=== PATIENT | female | born 1955 | race Caucasian/White ===

== ENCOUNTER 2017-03-28 18:44 | Observation (INO) | payer MEDICARE ==
[2017-03-28] MEDS ORDERED: LEVOFLOXACIN 500 MG IVPB ONE (19:51)
[2017-03-28] MEDS ORDERED: Ondansetron INJ* 2 MG/ML VIAL IV ONE (19:51)
[2017-03-28] MEDS ORDERED: Morphine INJ* 4 MG/ML 1 ML CARPUJECT IV ONE (19:51)
[2017-03-28] MEDS ORDERED: IVPREMIX IVPB ONE (19:51)
[2017-03-28] MEDS ORDERED: NS 0.9% 1000 ML* 1,000 ML IV ONE (19:51)
[2017-03-28] MEDS ORDERED: metroNIDAZOLE IV 500 MG/100ML* 500 MG/100 ML BAG IVPB ONE (19:54)
[2017-03-28 20:08] LABS: ABS Basophils 0.4 10^3/ul (0-0.2); ABS Eosinophils 0.1 10^3/ul (0-0.6); ABS Lymphocytes 77.3 10^3/ul (1.0-4.8); ABS Monocytes 1.5 10^3/ul (0-0.8); ABS Neutrophils 10.3 10^3/ul (1.5-7.7); ABS Nucleated RBC 0.61 10^3/ul; Eosinophil % 0.1 % (0-6); Hematocrit 43 % (35-47); Hemoglobin 13.9 g/dl (12.0-16.0); Lymphocyte % 86.4 % (25-47); Mean Corpuscular HGB Conc 32 g/dl (31-36); Mean Corpuscular Hemoglobin 32 pg (27-31); Mean Corpuscular Volume 98 fL (80-97); Mean Platelet Volume 9 um3 (7.4-10.4); Nucleated Red Blood Cells % 0.7; Platelet Count 176 10^3/ul (150-450); Red Blood Count 4.35 10^6/ul (4.0-5.4); Red Cell Distribution Width 14 % (10.5-15); White Blood Count 89.5 10^3/ul (3.5-10.8)
[2017-03-28 20:19] LABS: EGFR Non-African American 63.4 (>60)
[2017-03-28] MEDS ORDERED: Iohexol 300* (CONTRAST) 10 ML SDV IV ONE (20:30)
[2017-03-28] MEDS ORDERED: Levofloxacin 500 MG IVPREMIX(* 500 MG/100 ML BAG IVPB ONE (20:41)
[2017-03-28 20:53] LABS: INR 0.97 (0.77-1.02)
[2017-03-28 21:48] LABS: Urine Appearance Clear; Urine Blood Negative (Negative); Urine Color Yellow; Urine Ketones Negative (Negative); Urine Protein Negative (Negative); Urine Specific Gravity 1.012 (1.010-1.030); Urine Urobilinogen Negative (Negative)
--- NOTE | 2017-03-28 22:27 | RAD ---
INDICATION: Abdominal pain. COMPARISON: There are no prior studies available for comparison. TECHNIQUE: A CT scan of the abdomen and pelvis was performed with intravenous and oral contrast following intravenous injection of 113 ml of Omnipaque 300 nonionic contrast. Contiguous axial sections were obtained from the lung bases through the symphysis pubis. Images were reconstructed in the coronal and sagittal planes. FINDINGS: There is mild dependent bilateral lower lobe subsegmental atelectasis. No pleural effusion is present. The liver is normal in size and decreased in attenuation consistent with fatty filtration. No significant focal hepatic abnormality is seen. No calcified gallstones are noted. The spleen is upper limits of normal in size. The pancreas appears to be within normal limits. The kidneys and adrenal glands are normal in size. No hydronephrosis is seen. No significant focal renal abnormality is seen. The aorta is normal in caliber and demonstrates homogeneous contrast opacification. No significant enlarged retroperitoneal lymph nodes are seen. The stomach, small and large bowel appear nondistended. The patient is status post appendectomy by history. There is thickening of the wall of the descending and sigmoid colon which is most prominent in the sigmoid colon. There is mild interstitial stranding adjacent to the sigmoid colon. These findings are most consistent with colitis. There a transition point in the mid transverse colon likely representing the beginning of the area involved with inflammation. The patient is status post hysterectomy. There is a small amount of free intraperitoneal fluid present dependently within the pelvis. No free intraperitoneal air is seen. There is soft tissue swelling present in the subcutaneous tissues in the anterior abdominal wall. No significant focal osseous abnormality is seen. IMPRESSION: 1. FINDINGS MOST CONSISTENT WITH COLITIS INVOLVING THE DESCENDING AND SIGMOID COLON. 2. HEPATIC STEATOSIS. 3. STATUS POST HYSTERECTOMY AND APPENDECTOMY BY HISTORY.
[2017-03-28] MEDS ORDERED: Ondansetron INJ* 2 MG/ML VIAL IV PRN (23:07)
[2017-03-28] MEDS ORDERED: Acetaminophen TAB* 325 MG PO PRN (23:07)
--- NOTE | 2017-03-28 23:16 | ED ---
Cyrus Reagan Tecjoon, scriblinda for Peña Lugo MD on 03/28/17 at 2017 . Abdominal Pain/Female - HPI Summary HPI Summary: This patient is a 61 year old female presenting to [facility] accompanied by with a chief complaint of severe abdominal pain followed by rectal bleeding since 0300 last night. Patient states that sx are intermittent and there is a sharp shooting pain across abdomen, then blood comes. Pt describes blood as slimy. The pain is rated 6/10 in severity and radiates to lower back. Symptoms aggravated by palpation. Symptoms alleviated by nothing. Patient additionally reports chills, bad diarrhea. Patient denies fever - History of Current Complaint Chief Complaint: EDAbdPain Stated Complaint: PAIN IN ABD & BACK,GI PROBS Time Seen by Provider: 03/28/17 19:36 Hx Obtained From: Patient Onset/Duration: Lasting Days - 2, Still Present Timing: Intermittent Episode Lasting Severity Currently: Moderate Pain Intensity: 6 Pain Scale Used: 0-10 Numeric Location: Diffuse Radiates: Yes Radiates to: Back - lower Character: Sharp, Other: - shooting Aggravating Factor(s): Other: - palpation Alleviating Factor(s): Nothing Associated Signs and Symptoms: Positive: Negative - fever, Other: - chills, bad diarrhea, anal bleeding Allergies/Adverse Reactions: Allergies Allergy/AdvReac Type Severity Reaction Status Date / Time No Known Allergies Allergy Verified 03/08/16 14:22 PMH/Surg Hx/FS Hx/Imm Hx Previously Healthy: No Endocrine/Hematology History: Reports: Other Endocrine/Hematological Disorders - lymphocytic leukemia Denies: Hx Diabetes Cardiovascular History: Denies: Hx Hypertension, Hx Pacemaker/ICD, Other Cardiovascular Problems/ Disorders Respiratory History: Denies: Hx Asthma History: Denies: Hx Dialysis, Hx Renal Disease Musculoskeletal History: Denies: Hx Rheumatoid Arthritis, Hx Osteoporosis Sensory History: Denies: Hx Contacts or Glasses, Hx Hearing Aid Opthamlomology History: Denies: Hx Contacts or Glasses Neurological History: Reports: Other Neuro Impairments/Disorders - PT HAS MULTIPLE SCLEROSIS Psychiatric History: Reports: Hx Depression - ON MEDS Denies: Hx Panic Disorder - Cancer History Cancer Type, Location and Year: LEUKEMIA Hx Chemotherapy: No Hx Radiation Therapy: No Hx Palliative Cancer Treatment: No - Surgical History Surgery Procedure, Year, and Place: HYSTERECTOMY 1982, APPENDIX 1982, LASIX 2004 ;. EYELID -( NO METAL- FAT REMOVED) 01/2015; Hx Anesthesia Reactions: No Infectious Disease History: No Infectious Disease History: Denies: Traveled Outside the [place] in Last 30 Days - Family History Known Family History: Positive: Hypertension, Other - colon cancer - Social History Lives: With Family Alcohol Use: Occasionally Alcohol Amount: 1 Q 2 WEEKS Hx Substance Use: No Substance Use Type: Reports: None Hx Tobacco Use: No Smoking Status (MU): Never Smoked Tobacco Have You Smoked in the Last Year: No Review of Systems Positive: Chills. Negative: Fever Positive: Abdominal Pain, Diarrhea, Other - anal bleeding Positive: Other - back pain All Other Systems Reviewed And Are Negative: Yes Physical Exam - Summary Physical Exam Summary: VITAL SIGNS: Reviewed. GENERAL: Patient is a well-developed and nourished female who is lying comfortable in the stretcher. Patient is not in any acute respiratory distress. HEAD AND FACE: No signs of trauma. No ecchymosis, hematomas or skull depressions. No sinus tenderness. EYES: PERRLA, EOMI x 2, No injected conjunctiva, no nystagmus. EARS: Hearing grossly intact. Ear canals and tympanic membranes are within normal limits. MOUTH: Oropharynx within normal limits. NECK: Supple, trachea is midline, no adenopathy, no JVD, no carotid bruit, no c- spine tenderness, neck with full ROM. CHEST: Symmetric, no tenderness at palpation LUNGS: Clear to auscultation bilaterally. No wheezing or crackles. CVS: Regular rate and rhythm, S1 and S2 present, no murmurs or gallops appreciated. ABDOMEN: Diffuse tenderness over left abdomen. Bowel sounds are normal. RECTAL: Empty rectal. No masses. Tinge of blood on examining finger. EXTREMITIES: FROM in all major joints, no edema, no cyanosis or clubbing. NEURO: Alert and oriented x 3. No acute neurological deficits. Speech is normal and follows commands. SKIN: Dry and warm Triage Information Reviewed: Yes Vital Signs On Initial Exam: Initial Vitals Temp Pulse Resp BP Pulse Ox 99.1 F 111 20 148/98 94 03/28/17 18:48 03/28/17 18:48 03/28/17 18:48 03/28/17 18:48 03/28/17 18:48 Vital Signs Reviewed: Yes Diagnostics - Vital Signs Vital Signs Temp Pulse Resp BP Pulse Ox 03/28/17 18:48 99.1 F 111 20 148/98 94 - Laboratory Lab Results: Lab Results 03/28/17 03/28/17 03/28/17 Range/Units 19:52 19:52 19:52 WBC 89.5 H (3.5-10.8) 10^3/ul RBC 4.35 (4.0-5.4) 10^6/ul Hgb 13.9 (12.0-16.0) g/dl Hct 43 (35-47) % MCV 98 H (80-97) fL MCH 32 H (27-31) pg MCHC 32 (31-36) g/dl RDW 14 (10.5-15) % Plt Count 176 (150-450) 10^3/ul MPV 9 (7.4-10.4) um3 Neut % (Auto) 11.5 L (38-83) % Lymph % (Auto) 86.4 H (25-47) % [place] % (Auto) 1.6 (1-9) % Eos % (Auto) 0.1 (0-6) % Baso % (Auto) 0.4 (0-2) % Absolute Neuts (auto) 10.3 H (1.5-7.7) 10^3/ul Absolute Lymphs (auto) 77.3 H (1.0-4.8) 10^3/ul Absolute Monos (auto) 1.5 H (0-0.8) 10^3/ul Absolute Eos (auto) 0.1 (0-0.6) 10^3/ul Absolute Basos (auto) 0.4 H (0-0.2) 10^3/ul Absolute Nucleated RBC 0.61 10^3/ul Nucleated RBC % 0.7 Hem Pathologist Commnt Pending INR (Anticoag Therapy) 0.97 (0.77-1.02) APTT 28.9 (26.0-36.3) seconds Sodium 138 (133-145) mmol/L Potassium 4.8 (3.5-5.0) mmol/L Chloride 102 (101-111) mmol/L Carbon Dioxide 29 (22-32) mmol/L Anion Gap 7 (2-11) mmol/L BUN 13 (6-24) mg/dL Creatinine 0.90 (0.51-0.95) mg/dL Est GFR ( Amer) 81.6 (>60) Est GFR (Non-Af Amer) 63.4 (>60) BUN/Creatinine Ratio 14.4 (8-20) Glucose 109 H (70-100) mg/dL Lactic Acid (0.5-2.0) mmol/L Calcium 9.3 (8.6-10.3) mg/dL Magnesium 2.0 (1.9-2.7) mg/dL Total Bilirubin 1.00 (0.2-1.0) mg/dL AST 25 (13-39) U/L ALT 33 (7-52) U/L Alkaline Phosphatase 86 (34-104) U/L C-Reactive Protein 9.23 H (< 5.00) mg/L Total Protein 6.6 (6.4-8.9) g/dL Albumin 4.5 (3.2-5.2) g/dL Globulin 2.1 (2-4) g/dL Albumin/Globulin Ratio 2.1 (1-3) Amylase 45 (29-103) U/L Lipase 13 (11.0-82.0) U/L Urine Color Urine Appearance Urine pH (5-9) Ur Specific [place] (1.010-1.030) Urine Protein (Negative) Urine Ketones (Negative) Urine Blood (Negative) Urine Nitrate (Negative) Urine Bilirubin (Negative) Urine Urobilinogen (Negative) Ur Leukocyte Esterase (Negative) Urine Glucose (Negative) 03/28/17 03/28/17 Range/Units 19:52 21:33 WBC (3.5-10.8) 10^3/ul RBC (4.0-5.4) 10^6/ul Hgb (12.0-16.0) g/dl Hct (35-47) % MCV (80-97) fL MCH (27-31) pg MCHC (31-36) g/dl RDW (10.5-15) % Plt Count (150-450) 10^3/ul MPV (7.4-10.4) um3 Neut % (Auto) (38-83) % Lymph % (Auto) (25-47) % [place] % (Auto) (1-9) % Eos % (Auto) (0-6) % Baso % (Auto) (0-2) % Absolute Neuts (auto) (1.5-7.7) 10^3/ul Absolute Lymphs (auto) (1.0-4.8) 10^3/ul Absolute Monos (auto) (0-0.8) 10^3/ul Absolute Eos (auto) (0-0.6) 10^3/ul Absolute Basos (auto) (0-0.2) 10^3/ul Absolute Nucleated RBC 10^3/ul Nucleated RBC % Hem Pathologist Commnt INR (Anticoag Therapy) (0.77-1.02) APTT (26.0-36.3) seconds Sodium (133-145) mmol/L Potassium (3.5-5.0) mmol/L Chloride (101-111) mmol/L Carbon Dioxide (22-32) mmol/L Anion Gap (2-11) mmol/L BUN (6-24) mg/dL Creatinine (0.51-0.95) mg/dL Est GFR ( Amer) (>60) Est GFR (Non-Af Amer) (>60) BUN/Creatinine Ratio (8-20) Glucose (70-100) mg/dL Lactic Acid 2.0 (0.5-2.0) mmol/L Calcium (8.6-10.3) mg/dL Magnesium (1.9-2.7) mg/dL Total Bilirubin (0.2-1.0) mg/dL AST (13-39) U/L ALT (7-52) U/L Alkaline Phosphatase (34-104) U/L C-Reactive Protein (< 5.00) mg/L Total Protein (6.4-8.9) g/dL Albumin (3.2-5.2) g/dL Globulin (2-4) g/dL Albumin/Globulin Ratio (1-3) Amylase (29-103) U/L Lipase (11.0-82.0) U/L Urine Color Yellow Urine Appearance Clear Urine pH 6.0 (5-9) Ur Specific [place] 1.012 (1.010-1.030) Urine Protein Negative (Negative) Urine Ketones Negative (Negative) Urine Blood Negative (Negative) Urine Nitrate Negative (Negative) Urine Bilirubin Negative (Negative) Urine Urobilinogen Negative (Negative) Ur Leukocyte Esterase Negative (Negative) Urine Glucose Negative (Negative) Result Diagrams: 03/28/17 19:52 03/28/17 19:52 Lab Statement: Any lab studies that have been ordered have been reviewed, and results considered in the medical decision making process. - CT CT ABD/PEL CT Interpretation: Positive (See Comments) - IMPRESSION: 1. FINDINGS MOST CONSISTENT WITH COLITIS INVOLVING THE DESCENDING AND SIGMOID COLON. 2. HEPATIC STEATOSIS. 3. STATUS POST HYSTERECTOMY AND APPENDECTOMY BY HISTORY. ED physician has reviewed this radiology report. CT Interpretation Completed By: Radiologist - EKG 2024 Cardiac Rate: NL EKG Rhythm: Sinus Rhythm - 79 BPM EKG Interpretation: NSR (79 BPM), Normal axis. Normal interval. No ischemic changes Abdominal Pain Fem Course/Dx - Course Course Of Treatment: This patient is a 61 year old female presenting to [facility] accompanied by with a chief complaint of severe abdominal pain followed by rectal bleeding since 0300 last night. Patient states that sx are intermittent and there is a sharp shooting pain across abdomen, then blood comes. An EKG, taken 2024, reveals NSR (79 BPM), Normal axis. Normal interval. No ischemic changes. CT ABD/PEL reveals, per radiologist, IMPRESSION: 1. FINDINGS MOST CONSISTENT WITH COLITIS INVOLVING THE DESCENDING AND SIGMOID COLON. 2. HEPATIC STEATOSIS. 3. STATUS POST HYSTERECTOMY AND APPENDECTOMY BY HISTORY. ED physician has reviewed this radiology report. Bloodwork Obtained. Urinalysis Obtained. In the ED course the patient was given Zofran, Morphine, Levaquin, Flagyl, Iohexol, Tylenol. The patient is diagnosed with colitis. Patient also has leukocytosis, which is secondary to lymphomatic leukemia, which is chronic. - Diagnoses Provider Diagnoses: Colitis, Leukocytosis, CLL (chronic lymphocytic leukemia) - Provider Notifications Discussed Care Of Patient With: Rizwan Bartlett - Hospitalist Time Discussed With Above Provider: 23:00 Instructed by Provider To: Admit As Inpatient Discharge - Discharge Plan Condition: Stable Disposition: ADMITTED TO [facility] Referrals: Lorie Street MD [Primary Care Provider] - Additional Instructions: The patient is diagnosed with colitis. Patient also has leukocytosis, which is secondary to lymphomatic leukemia, which is chronic. We discussed patient care with Dr. Bartlett (Hospitalist) and they agreed to admit the patient. The patient is agreeable with this plan. The documentation as recorded by the Cyrus myers Tecjoon accurately reflects the service I personally performed and the decisions made by me, Peña Lugo MD.
[2017-03-29] MEDS: NS 0.9% 1000 ML* 1,000 ML IV SCH ×2 (01:31→09:47)
--- NOTE | 2017-03-29 02:03 | HP ---
CC: Dr. Street; Dr. Adames; Dr. Andrade.* ADMISSION HISTORY AND PHYSICAL: DATE OF ADMISSION: PRIMARY CARE PROVIDER: Dr. Street. ONCOLOGIST: Dr. Adames. NEUROLOGIST: Dr. Andrade. HEALTHCARE PROXY: Her . CODE STATUS: Full. SOURCE OF INFORMATION: History obtained from interview with the patient and review of past medical records. RELIABILITY: Good. CHIEF COMPLAINT: Abdominal pain. HISTORY OF PRESENT ILLNESS: This is a 61-year-old female with past medical history of CLL, multiple sclerosis who has been in his usual state of health until approximately 6 a.m. in the morning of admission, woke up with abdominal pain across her lower abdomen, described as sharp and shooting that was waxing and waning, associated with diarrhea. She notes the sequence of events that she would have an episode of diarrhea followed by sharp, shooting abdominal pain radiating across her lower abdomen, after which she would have passed a small amount of blood per her rectum occurring approximately every 45 minutes. She thinks it is approximately a tablespoon or less of blood each time, not associated with stool. There was mucus associated with the blood and this was occurring every hour since 6 a.m. until presentation in the emergency room. Her last bowel movement was in the emergency room, associated with blood although she cannot give me an accurate time. She thinks the frequency has decreased since presenting to the emergency room. Abdominal pain is currently controlled. Last administration of morphine was at 8:30 p.m. approximately 3 hours prior to evaluation by this author. She has had no nausea or vomiting. No NSAID use or blood thinner use. She always feels lightheaded without change. She has had no chest pain or shortness of breath. She has had sick contacts with people that may have had the flu, but no GI symptoms and she has not eaten anything different or uncooked over the last week. REVIEW OF SYSTEMS: As per HPI including shooting abdominal pain, diarrhea, and bright red blood per rectum associated with mucus. Otherwise, all other systems negative. PAST SURGICAL HISTORY: Multiple sclerosis, optic neuritis, left eye blindness, CLL, hyperlipidemia, history of hysterectomy, and blepharoplasty. SOCIAL HISTORY: Nonsmoker. Drinks approximately 2 glasses of wine per week. 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 FAMILY HISTORY: Significant for a brother with colon cancer. Mother with brain cancer and hypertension. ALLERGIES: No known drug allergies. MEDICATIONS: Reviewed from [facility] include, 1. Duloxetine [address] daily. 2. Zofran ODT every 8 hours as needed. 3. Hydroxyzine 25 mg 1 to 2 tabs every 6 to 8 hours as needed for pruritus. 4. Tizanidine 2 mg daily at bedtime. 5. Copaxone 40 mg per mL 3 times a week, next due tomorrow. 6. Crestor 10 mg daily. 7. Vitamin D, unknown dose, 2 tabs daily. 8. Cortizone-10 1% ointment. PHYSICAL EXAMINATION GENERAL: Sitting up in bed, interactive, pleasant, in no apparent distress. VITAL SIGNS: In the emergency room, 121/76, heart rate 88 to 111, respiratory rate is 16, 97% on room air, T-max is 99.1 degrees Fahrenheit. HEENT: Oropharynx is clear. She has dry mucous membranes. Her sclerae are anicteric. LUNGS: Her lungs are clear to auscultation. She has positive bowel sounds, nondistended, tender to palpation of left lower quadrant. No rebound or guarding. HEART: She has a regular rate and rhythm. No murmurs, rubs or gallops. EXTREMITIES: Extremities are warm, well perfused without clubbing, cyanosis or edema, less than 2 second cap refill. Good peripheral pulses. NEUROLOGIC: She is alert and oriented x3. Cranial nerves are intact except for blindness. Left eye not tested. She has no apparent anxiety, agitation or depression. LABORATORY DATA/ IMAGING STUDIES: Labs were reviewed. White blood cell count is 89,500, 11% neutrophils, 86% lymphocytes, increased from last check which was 65,000 in February 21. INR is 0.9. Chemistry; sodium 137, potassium 4.8 , chloride 102, bicarb 29, BUN 13, creatinine 0.9, glucose 109, lactic acid 2, CRP is 9.2. Urine is benign. EKG, normal sinus rhythm, normal limited axis, good R-wave progression. No ST or T- wave changes. CT abdomen and pelvis, status post appendectomy, thickening of the wall of descending and sigmoid colon, which is most prominent is sigmoid colon. There is mild interstitial stranding adjacent to the sigmoid colon. These findings are most consistent with colitis. There is a transition point in the mid transverse colon likely representing the beginning of the area involved with inflammation. The patient is status post hysterectomy. No free intraperitoneal air is identified. Hepatic steatosis was noted . ASSESSMENT AND PLAN: A 61-year-old female with past medical history of chronic lymphocytic leukemia and multiple sclerosis presenting with abdominal pain associated with bright red blood per rectum, found with descending and sigmoid colitis. 1. Colitis. Lower suspicion for ischemic without risk factors, however, certainly a possibility. With frequent diarrhea occurring every hour, I will check for C. diff colitis, although I might expect colitis to be more diffuse and evidenced on CAT scan. Check stool for cultures. She received metronidazole and Levaquin in the emergency room. We will hold on additional antibiotics at this time. She is dry on exam, give 2 additional liters at 125 mL per hour of normal saline. 2. Rectal bleeding in the setting of colitis. Frequency of bowel movement associated with small amount of bright red blood has decreased. We will keep in hospital observation to monitor for improvement. Repeat blood in the morning or sooner if have additional bleeding. If continues to have bleeding, consider GI consultation for colonoscopy. 3. Chronic lymphocytic leukemia. White blood cell count is 89,000, higher than baseline, currently on no therapy. This may represent the acute inflammation. For this reason, checking a Clostridium difficile as above. Otherwise, no current management. No evidence of bulky lymphadenopathy contributing to disease. 4. Multiple sclerosis. Continue Copaxone, non-formulary, to bring in tomorrow if she stays long enough to receive it. 5. DVT prophylaxis. Pharmacological prophylaxis contraindicated in the setting of lower GI bleed. SCDs. 6. Full code status. [id number]/[facility] #: [id number] MTDD
[2017-03-29 06:25] LABS: ABS Basophils 0.2 10^3/ul (0-0.2); ABS Eosinophils 0.1 10^3/ul (0-0.6); Eosinophil % 0.2 % (0-6); Mean Corpuscular Hemoglobin 32 pg (27-31); Mean Platelet Volume 8 um3 (7.4-10.4)
[2017-03-29 06:27] LABS: ABS Neutrophils 6.9 10^3/ul (1.5-7.7); ABS Nucleated RBC 0.15 10^3/ul; Hematocrit 36 % (35-47); Hemoglobin 11.8 g/dl (12.0-16.0); Lymphocyte % 86.1 % (25-47); Mean Corpuscular HGB Conc 33 g/dl (31-36); Mean Corpuscular Volume 98 fL (80-97); Nucleated Red Blood Cells % 0.2; Platelet Count 135 10^3/ul (150-450); Red Blood Count 3.66 10^6/ul (4.0-5.4); Red Cell Distribution Width 14 % (10.5-15)
[2017-03-29 06:38] LABS: White Blood Count 59.2 10^3/ul (3.5-10.8)
[2017-03-29 06:40] LABS: EGFR Non-African American 74.8 (>60)
[2017-03-29 06:59] LABS: Monocytes % 2 % (0-13)
[2017-03-29] MEDS ORDERED: DULoxetine DR CAP* 60 MG CAP.DR PO SCH (09:00)
[2017-03-29] MEDS ORDERED: Glatiramer(NF) 20 MG/ML 1 ML SYRINGE SUBCUT SCH (09:00)
--- NOTE | 2017-03-29 13:18 | PN ---
Subjective Date of Service: 03/29/17 Interval History: Patient seen and examined at bedside. Patient states diarrhea resolved. She states she has small amounts of bright red blood associated with cramping every hour overnight until early this morning. Now she states cramping as resolved. Reports mild abdominal discomfort. Tolerated full liquid diet. Family History: Unchanged from Admission Social History: Unchanged from Admission Past Medical History: Unchanged from Admission Objective Active Medications: Acetaminophen (Tylenol Tab*) 650 mg PO Q4H PRN Atorvastatin Calcium (Lipitor*) 40 mg PO 2100 MAR Duloxetine HCl (Cymbalta Cap*) 60 mg PO DAILY MAR Glatiramer Acetate (Copaxone(Nf)) 40 mg SUBCUT MoWeFr MAR Sodium Chloride (Ns 0.9% 1000 Ml*) 1,000 mls @ 125 mls/hr IV PER RATE MAR Ondansetron HCl (Zofran Inj*) 4 mg IV Q4H PRN Tizanidine HCl (Zanaflex Tab*) 2 mg PO BEDTIME MAR Vital Signs Temp Pulse Resp BP Pulse Ox 98.1 F 77 18 119/72 100 03/29/17 07:47 03/29/17 07:47 03/29/17 07:47 03/29/17 07:47 03/29/17 07:47 Oxygen Devices in Use Now: None Appearance: sitting up in bed, NAD Eyes: No Scleral Icterus, PERRLA Ears/Nose/Mouth/Throat: NL Teeth, Lips, Gums Neck: NL Appearance and Movements; NL JVP Respiratory: Symmetrical Chest Expansion and Respiratory Effort, Clear to Auscultation Cardiovascular: NL Sounds; No Murmurs; No JVD, RRR Abdominal: - - slight Extremities: No Edema Skin: No Rash or Ulcers Neurological: Alert and Oriented x 3, NL Muscle Strength and Tone Lines/Tubes/Other Access: Clean, Dry and Intact Peripheral IV Nutrition: Taking PO's Result Diagrams: 03/29/17 06:09 03/29/17 06:09 Additional Lab and Data: . Assess/Plan/Problems-Billing Patient is a 61 y/o F w/ hx of CLL, MS who presented 03/28 w/ the c/o of abdominal cramping and BRBPR found to have colitis on CT scan. - Patient Problems (1) Colitis Comment: Viral gaastroenteritis vs ischemic yet she has no risks factors for ischemic. Appreciate GI input. Plan for sigmoidoscopy this afternoon. No antibiotics at this time. (2) BRBPR (bright red blood per rectum) Comment: Resolved; Hb drop secondary to hemodilution. Sigmoidoscopy this afternoon. (3) CLL (chronic lymphocytic leukemia) Comment: WBC slightly up from baseline. Patient is not currently receiving treatment. (4) Multiple sclerosis Comment: Continue Copaxone (5) DVT prophylaxis Comment: SCDs only. (6) Full code status Status and Disposition: OBV. Sigmoidoscopy this afternoon. Possible discharge later this evening.
[2017-03-29] MEDS ORDERED: Midazolam* 1 MG/ML 10 ML VIAL (10 MG) ONE (15:12)
[2017-03-29] MEDS ORDERED: Meperidine SYRINGE* 50 MG/ML ONE (15:12)
[2017-03-29 16:40] VITALS: BP 126/75
--- NOTE | 2017-03-29 20:40 | CONS ---
GASTROENTEROLOGY CONSULT: DATE: 03/29/17 CONSULTING PHYSICIAN: Rizwan Mcnamara. REASON FOR CONSULTATION: Abrupt onset crampy diarrhea with blood. HISTORY: This 61-year-old woman disabled from multiple sclerosis and being followed conservatively for chronic lymphocytic leukemia, had eaten her Boy dinner around 1 p.m. There were 12 others with her. Everyone has else has been fine. She was asleep when she awakened at 4 a.m. with painful cramps and diarrhea. After about an hour, she could discern blood in the diarrhea. It seemed to slow down, but about every hour she was affected by a stabbing pain and more diarrhea. At around 6 p.m., her brought her to the emergency room. In the ER, she was minimally febrile at 99.1 and her white count 89.5, which is slightly higher than her general baseline which runs from 54 to 72. Her LFTs were normal. CRP was 9.23. CT scan showed a thickened descending and sigmoid colon. Overnight, she has had a few more loose stools, but has been feeling better. None of the others at the dinner have been ill. Her bowel pattern is typically once or twice a day without any trouble. She had a colonoscopy in 2005, but nothing seen. Her brother of colon cancer at age 59 and a note from our office this spring says that she is electing not to have any further colonoscopies. PAST MEDICAL HISTORY: 1. CLL - white count up at 40,[address] Ruelas's 2005 note. She has not had any chemo as Dr. Adames is observing things. 2. Multiple sclerosis - on Copaxone injection three times a week per Dr. Andrade. She is blind in her left eye. 3. Status post complete hysterectomy in 1979. 4. Incidental appendectomy in 1979. 5. Swallowing issues - swallowing function study in July 2016 was unremarkable without any aspiration. MEDICATIONS: At home: 1. Copaxone 20 mg t.i.w. 2. Zoloft 150. 3. Trazodone h.s. p.r.n. In the hospital, atorvastatin was started. 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 REVIEW OF SYSTEMS: No history of CVA, TIA, seizures, SC, palpitations, arrhythmias, cardiac valvular disease, hepatitis, jaundice, rectal bleeding, psoriasis, other skin problems. PHYSICAL EXAMINATION: She is a moderately overweight middle-aged woman in no overt distress. Skin is unremarkable. She has a well-healed hysterectomy scar. HEENT exam is unremarkable. There is no icterus. Mucous membranes are normal. Her lungs are clear. Heart sounds are regular. The abdomen is symmetric with bowel sounds present though somewhat diminished. Rectal shows bloody secretions. She is tender to deep palpation below the umbilicus. There is no edema. Neurologic showed no obvious cranial nerve deficit, but she moves all 4 extremities equally in bed. The gait was not tested. IMPRESSION: Probable ischemic colitis with the abrupt thunderclap middle of the night onset of symptoms and a reliable history that 12 others eating the same food have not had a similar illness essesntially making the diagnosis. The CT scan corroborates it. Flexible sigmoidoscopy with biopsy will be useful in future planning. She has no history of a hypercoagulable state or risk factors for vascular disease per se. . [id number]/[facility] #: [id number] MILADYS
[2017-03-29] MEDS ORDERED: Atorvastatin* 40 MG TAB PO SCH (21:00)
[2017-03-29] MEDS ORDERED: tiZANidine TAB* 2 MG PO SCH (21:00)
--- NOTE | 2017-03-30 00:50 | PRO ---
DATE: 03/29/17 - ROOM #[id number] REFERRING PHYSICIAN: Lorie Street MD * PROCEDURE: Flexible sigmoidoscopy and biopsy of distal sigmoid colon at 20 to 22 cm. INDICATION: This 61-year-old woman with a background of chronic lymphocytic leukemia (diagnosed in 1999) and multiple sclerosis (diagnosed in 2010) developed classic 4 a.m. diarrhea that turned bloody. She has now settled down. Her white count is unanalyzable given it's persistent elevation over 30, 000. She is feeling better and her loose stools have diminished. Informed consent was obtained with an opportunity for questions and special concerns. ENDOSCOPIST: Geoff Cunningham MD MEDICATIONS: 6 midazolam with good comfort. FINDINGS: She is a substantially overnight woman, in no overt distress at this time. Her abdomen is symmetric, firm with deep tenderness in the lower half, right equaling left. Bowel sounds are diminished, but present. Rectal shows bloody mucus. Initial views show bloody mucus and normal rectal mucosa. Abruptly at about 20 to 22 cm, there is a transition to a granular goodwin appearance typical of ischemia. Within a couple of centimeters, there is an abrupt angulation and attempts to pass this caused distress and are not necessary to establish the diagnosis. Three biopsies are taken at about 21 to 22 cm from typical granular goodwin edematous mucosa. IMPRESSION: Probable ischemic colitis, beginning somewhat atypically low at 20 to 22. [id number]/[facility] [place] #: [id number] [facility]
--- NOTE | 2017-03-30 03:10 | DS ---
CC: Dr. Street * DISCHARGE SUMMARY: DATE OF ADMISSION: 03/28/17 DATE OF DISCHARGE: 03/29/17 PRIMARY CARE PROVIDER: Dr. Street. ATTENDING PHYSICIAN: Dr. Mary Triana * (report dictated by Mag Taylor NP). PRIMARY DIAGNOSIS: Ischemic colitis. SECONDARY DIAGNOSES: 1. Chronic lymphocytic leukemia. 2. Hyperlipidemia. 3. Multiple sclerosis. STUDIES WHILE IN THE HOSPITAL: CT scan of the abdomen and pelvis, 03/28/17: Findings most consistent with colitis involving the descending and sigmoid colon. Hepatic steatosis. Status post hysterectomy and appendectomy by history. MEDICATIONS AT THE TIME OF DISCHARGE: Identical to admission: 1. Copaxone 40 mg injection Monday, Monday, Monday. 2. Vitamin D 1000 units oral daily. 3. Crestor 10 mg oral daily. 4. Zofran 4 mg every 8 hours as needed. 5. Cymbalta 60 mg oral daily. 6. Zanaflex 2 mg oral bedtime. 7. Atarax 25 mg oral 4 times daily as needed. PROCEDURES WHILE IN THE HOSPITAL: Flexible sigmoidoscopy, 03/29/17. Please refer to Dr. Cunningham's dictation for detail. HISTORY OF PRESENT ILLNESS AND HOSPITAL COURSE: Ms. Jordan is a pleasant 61- year-old female with past medical history significant for CLL, multiple sclerosis, who presented to the emergency room on 03/29/17 with complaint of abdominal cramping, diarrhea, and drops of bright red blood per rectum. The patient's symptoms have lasted approximately 24 hours prior to her presentation. The patient was given a dose of Levaquin in the emergency room and admitted to the medical floor for further workup. In the morning of , the patient's cramping and bright red blood had subsided. Although the patient's hemoglobin remained stable, there was concern, the pattern of bright red blood was unlike of what would be expected for a typical viral gastroenteritis; hence, consultation was obtained from Gastroenterology. Dr. Cunningham took the patient for a flexible sigmoidoscopy. Please refer to his dictation for detail. Findings were consistent with ischemic colitis. The patient was given information regarding her diagnosis. Her diet was advanced to a regular diet and she tolerated this without any further abdominal pain. At this point, she is stable for discharge. She was maintained on Copaxone and Crestor as well as Cymbalta during her hospitalization. On 03/29/17, she was stable for discharge. Vitals were as follows: Temperature 98.5, heart rate 92, respiratory rate 20, blood pressure 126/75, oxygen saturation 98%. Abdominal pain had resolved and the patient had had no further bright red blood per rectum. Hemoglobin was stable at 11.8. It is also important to note that the patient's white blood cell count was 90, 000, usually her baseline with CLL is around 40,000. Likely, this was indicative of the inflammation. The patient has not had a colonoscopy for quite some time and recommendation is for the patient to pursue a colonoscopy, especially given the family history of colon cancer within the near future. DISCHARGE PLAN: The patient was discharged on a postop soft GI diet with activity is as tolerated. She should follow up with her primary care provider, Dr. Street, within 4 to 7 days. The patient should arrange for a colonoscopy in the near future. The patient should return to the hospital if she experiences any bright red blood per rectum in the future. I reviewed all these instructions with the patient and her and they were agreeable with her discharge today. This is a summarized report of a complex medical history and hospital stay. For more details, please see the entire medical record. TIME SPENT: Time for discharge was 50 minutes and 25 minutes was spent with the patient discussing medications at discharge and followup instructions and plan. CONDITION ON DISCHARGE: Stable. MAG TAYLOR NP [id number]/[facility] #: [id number] [place]
== END 2017-03-29 18:25 | disposition home or self-care (01) ==
LOC: ED 18:44 → MED 23:07
PROVIDERS: ADMIT Internal Medicine; ATTEND Internal Medicine
PROC: 0DBN8ZX Excision of Sigmoid Colon, Via Natural or Artificial Opening Endoscopic, Diagnostic (ICD-10-PCS; principal; 2017-03-28)
DX: K55.9 Vascular disorder of intestine, unspecified (principal); C91.10 Chronic lymphocytic leukemia of B-cell type not having achieved remission; E78.5 Hyperlipidemia, unspecified; G35 Multiple sclerosis; Z79.899 Other long term (current) drug therapy; K62.5 Hemorrhage of anus and rectum; R10.9 Unspecified abdominal pain; K76.0 Fatty (change of) liver, not elsewhere classified
CPT/HCPCS: 36415; 74177; 80048; 80053; 81003; 82150; 83605; 83690; 83735; 85025; 85060; 85610; 85730; 86140; 88305; 93005; 96365; 96367; 96375; 96376; 99156; 99157; 99284; A9270-GY; G0378; J1956; J2175; J2250; J2270; J2405; J3490; Q9967